=== PATIENT | female | born 1955 | race Asian ===

== ENCOUNTER 2024-12-20 10:22 | Emergency (ER) | payer OTHER, SELFPAY ==
[2024-12-20 10:33] VITALS: BP 173/102
[2024-12-20 11:17] VITALS: BMI 34.5
[2024-12-20] MEDS: TORADOL 15 MG IM (12:00)
--- NOTE | 2024-12-20 12:24 | ED.GENMED ---
History of Present Illness
General
Chief Complaint: Breast Problem
Time Seen by Provider: 12/20/24 11:16
History of Present Illness
History of Present Illness:
69-year-old female with history of high blood pressure presenting to the emergency department after a fall. Patient reports that she tripped 4 to 5 days ago while walking outside. She tripped on the pavement and fell forward. Does note head
strike without loss of consciousness. She is on baby aspirin. Denies prodromal dizziness or lightheadedness, however has been feeling dizzy since the fall. Her primary complaint is right-sided chest wall pain. Denies neck pain. Denies
difficulty breathing. Does note pain with deep inspiration. Denies abdominal pain or GI symptoms. Does note that she also landed on her knees, however has been ambulated without difficulty. Denies additional medical complaints
Phy Exam
Physical Exam
Physical Exam:
General: Well-appearing, no clinical signs of dehydration, nontoxic and in no acute distress
HEENT: protecting airway
Neck: appears supple, no midline tenderness
CV: Normal heart rate, regular rhythm
Resp: No accessory muscle use, no increased work of breathing, lungs clear to auscultation bilaterally. Reproducible tenderness to the right chest wall. No crepitus. No ecchymosis
Abd: Soft and non-distended, no tenderness to palpation
Extremities: No deformities, no swelling
Neuro: alert, no focal neurologic deficit
: deferred
Rectal: deferred
Psych: Normal affect
Skin: Intact
Course
Orders/Labs/Results
Orders:
Orders
12/20/24 11:44
CT Head W/o Iv Contrast Urgent
Comment:
Reason For Exam: fall with head strike
Ribs, Right 3 View W/PA Chest [CR Ribs-right 3 Vw W/pa Chest*] Urgent
Comment:
Reason For Exam: right chest wall pain after fall
12/20/24 11:45
Electrocardiogram (*1) Urgent
Reason for Study: Chest Pain
EKG- Treatment ONCE
Ketorolac [Toradol] 15 mg IM NOW STA
Vital Signs
Initial and Last Documented VS:
Initial Vital Signs
Temp Pulse Resp BP Pulse Ox
98.4 F 82 16 173/102 97
12/20/24 10:33 12/20/24 10:33 12/20/24 10:33 12/20/24 10:33 12/20/24 10:33
Last Documented Vital Signs
Temp Pulse Resp BP Pulse Ox
98.4 F 82 16 173/102 97
12/20/24 10:33 12/20/24 10:33 12/20/24 10:33 12/20/24 10:33 12/20/24 12:27
MDM/Problems Addressed
MDM/Problems Addressed:
69-year-old female with history of hypertension presenting after a fall 4 to 5 days ago with right chest wall pain. Vital signs on arrival are significant for high blood pressure.
On exam, patient resting comfortably, no acute distress or discomfort. GCS of 15, no midline cervical neck tenderness. No focal neurologic deficits. Patient does note that she struck her head, without strong suspicion for acute intracranial
abnormality, however notes that she has had dizziness since the fall. Likely mild postconcussive syndrome. Screening EKG performed, unremarkable, no arrhythmia. Will screen with CT brain imaging. Regarding patient's chest wall, no obvious signs
of trauma, likely contused rib. Will obtain rib x-ray for further assessment. No additional findings of acute trauma or abnormality.
14:00-CT without any acute abnormality. X-ray without any obvious sign of rib fracture. Suspected rib contusion. At this time feel stable for discharge with continued supportive therapy. Will provide incentive spirometry. Return precautions
discussed the patient verbalized understanding
*Pulse Oximetry
SaO2: 97
Oxygen Mode of Delivery: Room air
Patient hypoxic: no
*Critical Care Note
Total Time (30-74mins, 75-104mins- exclusive of procedures): Not Applicable
ED Attending Note
-
Portions of this chart may have been created with voice recognition software.� Occasional wrong word or��sound alike� substitutions may have occurred due to the inherent limitations of voice recognition software.
Discharge Plan
Departure
Referrals:
NONE,* [Family Provider, Internal Medicine]
Interventions
Interventions:
*Risk Screen - Suicide Last Done: 12/20/24 10:33
*General Assessment Last Done: 12/20/24 11:17
*Neglect/Abuse Screening Last Done: 12/20/24 10:33
*ED- Fall Risk Assessment Last Done: 12/20/24 11:17
*ED COVID-19 Vaccine History Last Done: 12/20/24 11:17
*ED Influenza Vaccine History Last Done: 12/20/24 11:17
ED-Skin Assessment Last Done: 12/20/24 11:17
Discharge Date and Time
Print Language: COMORAN
== END 2024-12-20 14:22 | disposition home or self-care (01) ==
LOC: EMR 10:22
PROVIDERS: EMERGENCY PHYSICIAN Student in an Organized Health Care Education/Training Program
DX: S20.211A Contusion of right front wall of thorax, initial encounter (principal); W01.10XA Fall on same level from slipping, tripping and stumbling with subsequent striking against unspecified object, initial encounter; I10 Essential (primary) hypertension; Z79.82 Long term (current) use of aspirin
CPT/HCPCS: 99284; 96372; 70450; 71101; 93005